=== PATIENT | female | born 1960 | race Caucasian/White ===

== ENCOUNTER → 2025-05-03 08:31 | Outpatient (REF) | payer OTHER, SELFPAY | LOC: RCS 08:31 | PROVIDERS: ATTENDING PHYSICIAN Internal Medicine Cardiovascular Disease; FAMILY PHYSICIAN Family Medicine; REFERRING PHYSICIAN Internal Medicine Endocrinology, Diabetes & Metabolism | DX: R00.2 Palpitations (principal) | CPT/HCPCS: 93225; 93226 ==

== ENCOUNTER → 2025-05-09 11:10 | Outpatient (REF) | payer OTHER, SELFPAY | LOC: RCS 11:10 | PROVIDERS: ATTENDING PHYSICIAN Internal Medicine Cardiovascular Disease; FAMILY PHYSICIAN Family Medicine | DX: R00.2 Palpitations (principal) | CPT/HCPCS: 93306 ==